=== PATIENT | male | born 1995 | race African-American/Black ===

== ENCOUNTER 2018-03-21 21:53 | Emergency (ER) | payer MEDICAID, OTHER ==
[2018-03-22] MEDS ORDERED: TETRACAINE HCL 0.5% OPH SOLN 2 ML OD ONE (00:44)
[2018-03-22] MEDS ORDERED: ERYTHROMYCIN 0.5% OPH OINTMENT 3.5 GM TUBE OS ONE (00:57)
--- NOTE | 2018-03-22 00:59 | ER Document Report ---
ED General - General Chief Complaint: Eye Problem Stated Complaint: EYE PROBLEM Time Seen by Provider: 03/22/18 00:44 Mode of Arrival: Ambulatory Information source: Patient Notes: 22-year-old male presents with complaint of inability to remove a contact from his left eye. Patient states contact has been in his left eye for approximately 24 hours. He is experiencing associated pain, eye watering and blurred vision. TRAVEL OUTSIDE OF THE [place] IN LAST 30 DAYS: No - HPI Onset: This morning Onset/Duration: Gradual, Worse Quality of pain: Achy, Throbbing Severity: Mild Associated symptoms: None Exacerbated by: Other - Opening his eye, light Relieved by: Denies Similar symptoms previously: No Recently seen / treated by doctor: No - Related Data Allergies/Adverse Reactions: No Known Allergies Allergy (Unverified 03/21/18 22:01) Past Medical History - General Information source: Patient - Social History Smoking Status: Current Every Day Smoker Chew tobacco use (# tins/day): No Frequency of alcohol use: Occasional Drug Abuse: None Lives with: Family Family History: Reviewed & Not Pertinent Patient has suicidal ideation: No Patient has homicidal ideation: No - Medical History Medical History: Negative Renal/ Medical History: Denies: Hx Peritoneal Dialysis Review of Systems - Review of Systems Notes: REVIEW OF SYSTEMS: CONSTITUTIONAL : Denies fever, chills, or sweats. Denies recent illness. Denies weight loss, recent hospitalizations. EENT: Denies nasal or sinus congestion or discharge. Denies sore throat, oral lesions, difficulty swallowing. CARDIOVASCULAR: Denies chest pain. Denies palpitations. Denies lower extremity edema. RESPIRATORY: Denies cough, cold, or chest congestion. Denies shortness of breath, wheezing. GASTROINTESTINAL: Denies abdominal pain or distention. Denies nausea, vomiting , or diarrhea. Denies blood in vomitus, stools, or per rectum. Denies black, tarry stools. Denies constipation. GENITOURINARY: Denies difficulty urinating, painful urination, frequency, blood in urine, or vaginal discharge. MUSCULOSKELETAL: Denies back or neck pain or stiffness. Denies joint pain or swelling. SKIN: Denies rash, lesions or sores. HEMATOLOGIC : Denies easy bruising or bleeding. LYMPHATIC: Denies swollen glands. NEUROLOGICAL: Denies confusion or altered mental status. Denies passing out or loss of consciousness. Denies dizziness or lightheadedness. Denies headache. Denies weakness or paralysis. Denies problems difficulty with ambulation, slurred speech. Denies sensory loss, numbness, or tingling. Denies seizures. PSYCHIATRIC: Denies anxiety or stress. Denies depression, suicidal ideation, or homicidal ideation. Denies visual or auditory hallucinations. Physical Exam - Vital signs Vitals: Temp Pulse Resp BP Pulse Ox 98.5 F 67 18 141/100 H 100 03/21/18 21:59 03/21/18 21:59 03/21/18 21:59 03/21/18 21:59 03/21/18 21:59 - Notes Notes: PHYSICAL EXAMINATION: GENERAL: Well-appearing, well-nourished and in no acute distress. HEAD: Atraumatic, normocephalic. EYES: Pupils equal round and reactive to light, extraocular movements intact, sclera anicteric, conjunctiva are normal. Contact seen in the left eye under the left upper eyelid. No fluorescein uptake. ENT: Nares patent, oropharynx clear without exudates. Moist mucous membranes. NECK: Normal range of motion, supple without lymphadenopathy LUNGS: Breath sounds clear to auscultation bilaterally and equal. No wheezes rales or rhonchi. HEART: Regular rate and rhythm without murmurs ABDOMEN: Soft, nontender, nondistended abdomen. No guarding, no rebound. No masses appreciated. Musculoskeletal: Normal range of motion, no pitting or edema. No cyanosis. NEUROLOGICAL: Cranial nerves grossly intact. Normal speech, normal gait. Normal sensory, motor exams PSYCH: Normal mood, normal affect. SKIN: Warm, Dry, normal turgor, no rashes or lesions noted. Course - Re-evaluation Re-evalutation: 03/22/18 21:51 21-year-old male presents after being unable to remove the contact from his left eye. Contact has been in for approximately 24 hours. Upon arrival patient is well-appearing and in no acute distress. Vital signs within normal limits. Exam significant for left contact stuck in the left eye and of the left upper eyelid. No associated corneal abrasion. Contact was easily removed. Patient was placed on erythromycin ophthalmic ointment and discharged home in stable condition. Patient provided the opportunity to ask questions, and express concerns. Discharge instructions discussed. Patient is agreeable with discharge home. Return indications explained and discussed with the patient who displays understanding. Patient encouraged to return to the emergency department immediately with any concerns. - Vital Signs Vital signs: Temp Pulse Resp BP Pulse Ox 97.8 F 70 15 123/69 97 03/22/18 01:38 03/22/18 01:38 03/22/18 01:38 03/22/18 01:38 03/22/18 01:38 Discharge - Discharge Clinical Impression: Foreign body in eye, old, lens Qualifiers: Laterality: left Qualified Code(s): H44.732 - Retained (nonmagnetic) (old) foreign body in lens, left eye Condition: Good Disposition: HOME, SELF-CARE Instructions: Conjunctival Foreign Body ([facility]), Eyedrop Use ([facility]) Additional Instructions: Follow up with your physician tomorrow for further care or return to the ED IMMEDIATELY if symptoms worsen or new concerns occur. If you cannot afford to follow up with your primary care physician a list of low cost clinics have been provided at the end of your discharge papers as well. Prescriptions: Erythromycin Base [Erythromycin Oph 1 Gm Oint Ud] 1 applic OS Q6H 5 Days #1 tube Forms: Elevated Blood Pressure
[2018-03-22] MEDS ORDERED: ERYTHROMYCIN 0.5% OPH OINT 1 GM UNIT DOSE OS ONE (01:22)
[2018-03-22 01:48] VITALS: BP 123/69
== END 2018-03-22 01:48 | disposition home or self-care (01) ==
LOC: ER 21:53
DX: T15.82XA Foreign body in other and multiple parts of external eye, left eye, initial encounter (principal); X58.XXXA Exposure to other specified factors, initial encounter; F17.200 Nicotine dependence, unspecified, uncomplicated
CPT/HCPCS: 99283; J3490